=== PATIENT | female | born 1965 | race Caucasian/White ===

== ENCOUNTER 2024-09-21 16:27 | Emergency (ER) | payer MEDICAID ==
[~2024-09-21] VITALS: Ht 165.1 cm; Wt 82.0 kg
[2024-09-21 16:32] VITALS: TEMP 37; O2SAT 99
[2024-09-21 18:27] VITALS: BP 128/83; PULSE 77; RESP 16; TEMP 98.6
[2024-09-21] MEDS: ACETAMINOPHEN 325MG TABLET PO ONE (18:27)
[2024-09-21] MEDS: KETOROLAC 15MG/ML VIAL IM ONE (18:27)
[2024-09-21] MEDS: LIDOCAINE 5% PATCH TOP ONE (18:27)
== END 2024-09-21 20:35 | disposition home or self-care (01) ==
LOC: ER 16:27
DX: M54.2 Cervicalgia (principal); R07.89 Other chest pain; V43.52XA Car driver injured in collision with other type car in traffic accident, initial encounter; Y93.89 Activity, other specified; Y92.410 Unspecified street and highway as the place of occurrence of the external cause; Y99.8 Other external cause status
CPT/HCPCS: 71101; 96372; 99283; J1885; Z7610